=== PATIENT | male | born 1930 | race Caucasian/White ===

== ENCOUNTER 2017-01-04 08:43 | Outpatient (CLI) | payer MEDICARE, BC ==
[2017-01-04 09:29] LABS: AST (SGOT) 22 U/L (5-34); Bilirubin, Total 0.5 mg/dL (0.2-1.2); Chloride 106 mmol/L (98-107); Cholesterol 151 mg/dL (< 200 Desired); Potassium 4.4 mmol/L (3.5-5.1); Sodium 139 mmol/L (136-145); Triglycerides 68 mg/dL (Less than 150)
[2017-01-04 10:05] LABS: ALT (SGPT) 25 U/L (0-55); Albumin 4.3 g/dL (3.4-4.8); Alkaline Phosphatase 63 U/L (40-150); BUN (Urea Nitrogen) 15 mg/dL (8.4-25.7); Calc. Creatinine Clearance 0 mL/min (70-130); Carbon Dioxide 23 mmol/L (23-31); Estimated GFR-MDRD Greater than 90; Globulin 2.3 g/dL (2.4-3.5); Glucose 139 mg/dL (83-110); HDL Cholesterol 46 mg/dL (>60 Neg Risk); Protein, Total 6.6 g/dL (5.8-8.1)
[2017-01-04 12:13] LABS: Anion Gap 14 mmol/L (10-20)
[2017-01-04 12:14] LABS: LDL Cholesterol, Calculated 91 mg/dL
== END 2017-01-04 08:44 | disposition home or self-care (01) ==
LOC: BURLAB 08:43
PROVIDERS: ATTEND Internal Medicine Cardiovascular Disease
DX: I25.10 Atherosclerotic heart disease of native coronary artery without angina pectoris (principal)
CPT/HCPCS: 36415; 80053; 80061

== ENCOUNTER 2017-01-13 17:32 | Emergency (ER) | payer MEDICARE, BC ==
--- NOTE | 2017-01-13 18:43 | RAD ---
LEFT SHOULDER THREE VIEWS 01/13/17 No definite acute fracture was seen. A linear bony density along side the greater tubercle on one vi ew only may be in a tendon. It could signify an old injury. There is a little dip to the superolater al portion of the humeral head that I would wonder if could even be an old Hill-Sachs deformity. No acute fracture or dislocation was seen today. The AC joint is normal in width. IMPRESSION: No acute bony findings. See discussion above. POS: HOME
--- NOTE | 2017-01-13 18:44 | RAD ---
LEFT HUMERUS TWO VIEWS 01/13/17 No acute fracture was demonstrated. The humerus appears intact. A linear bony density near the great er tubercle of the proximal humerus is probably due to prior ligamentous damage here. IMPRESSION: No acute bony findings. POS: HOME
== END 2017-01-13 18:42 | disposition home or self-care (01) ==
LOC: BURERS 17:32
DX: S40.012A Contusion of left shoulder, initial encounter (principal); E11.9 Type 2 diabetes mellitus without complications; E78.00 Pure hypercholesterolemia, unspecified; I25.10 Atherosclerotic heart disease of native coronary artery without angina pectoris; I10 Essential (primary) hypertension; Z79.82 Long term (current) use of aspirin; Z79.899 Other long term (current) drug therapy; Z79.84 Long term (current) use of oral hypoglycemic drugs; W18.00XA Striking against unspecified object with subsequent fall, initial encounter
CPT/HCPCS: 93005

== ENCOUNTER 2017-03-15 09:04 | Outpatient (CLI) | payer MEDICARE, BC ==
--- NOTE | 2017-03-15 18:28 | CT ---
CT LUMBAR SPINE 03/15/2017 COMPARISON: A report from a 2012 MRI of the lumbar spine was reviewed. TECHNIQUE: A spiral CT of the lumbar spine was performed. Axial slices were acquired. Thin coronal and sagitt al reconstructions were done. FINDINGS: No definite acute fracture is demonstrated. There is some scalloping of the superior endplate of L3 that is probably long-standing. Retrolisthesis of L2 on L3 and L4 on L5 could be seen. Degenerate d disks are very prominent at L1-L2 and at L2-L3. The disk space is almost nonexistent at L3-L4. I t is narrowed and degenerated at L5-S1. There are sclerotic changes, particularly in L1 and L2, whi ch seem longstanding. Overall, scoliosis, convex left, is present. Findings by level follow: T11-T12: Degenerative changes but no acute findings. T12-L1: No acute findings. L1-L2: Degenerated disks. Bilateral foraminal stenosis, right more than left, due to facet overgro wth. Some of the facet overgrowth causes lateral recess stenosis, worse on the right. L2-L3: Very difficult to assess the foramina in this patient, but they are narrowed bilaterally. S ignificantly degenerated disks. L3-L4: Severe central canal stenosis due to facet overgrowth and ligamentous hypertrophy. At least moderate left foraminal narrowing. L4-L5: Severe left foraminal narrowing and severe left-sided facet changes. A moderate degree of c entral canal stenosis is present. L5-S1: Some mild concentric bulging of the disks, perhaps a little less eccentric. I cannot tell w hether it touches the left L5 root or not. The SI joints are not seen completely, but the visible areas showed no acute change. The aorta is densely calcified. Nonobstructing renal calculi are seen bilaterally. A rounded perip heral structure attached to the right kidney measures 3.5 cm and is almost certainly a cyst. IMPRESSION: 1. Severe multilevel degenerative changes, as noted. 2. Central canal stenosis, worst at L3-L4. See details above. MRI would be much more sensitive in this patient. POS: HOME
--- NOTE | 2017-03-16 07:42 | RAD ---
LUMBAR SPINE TWO VIEWS 03/15/2017 TECHNIQUE: Flexion and extension lateral views were provided. FINDINGS: No gross fracture is indicated. There are extensive severe degenerative changes present in the spin e. See CT report to follow for details. Multilevel degenerative disk disease is present at L2 and below. There did not appear to be any abnormal motion between flexion and extension. There is mild retrolisthesis of L2 on L3 and possibly of L4 on L5. The aorta is densely calcified. IMPRESSION: 1. Extensive severe degenerative change. 2. No abnormal motion between flexion and extension. POS: HOME
== END 2017-03-15 09:05 | disposition home or self-care (01) ==
LOC: BURCT 09:04
PROVIDERS: ATTEND Nurse Practitioner Family
DX: M47.26 Other spondylosis with radiculopathy, lumbar region (principal); M48.06 Spinal stenosis, lumbar region
CPT/HCPCS: 72100; 72131

== ENCOUNTER 2017-04-06 10:56 | Emergency (ER) | payer MEDICARE, BC | END 2017-04-06 11:17 | disposition home or self-care (01) | LOC: BURERS 10:56 | DX: S76.312A Strain of muscle, fascia and tendon of the posterior muscle group at thigh level, left thigh, initial encounter (principal); M25.561 Pain in right knee; K21.9 Gastro-esophageal reflux disease without esophagitis; E78.5 Hyperlipidemia, unspecified; E11.9 Type 2 diabetes mellitus without complications; Z79.899 Other long term (current) drug therapy; Z79.82 Long term (current) use of aspirin; Z79.84 Long term (current) use of oral hypoglycemic drugs; X58.XXXA Exposure to other specified factors, initial encounter | CPT/HCPCS: 99283 ==

== ENCOUNTER 2017-08-08 01:11 | Emergency (ER) | payer MEDICARE, BC ==
[2017-08-08] MEDS ORDERED: AMOXicillin 250 MG CAP ONE (01:27)
== END 2017-08-08 01:41 | disposition home or self-care (01) ==
LOC: EDBD → BURERS 01:11
DX: J44.0 Chronic obstructive pulmonary disease with (acute) lower respiratory infection (principal); J20.9 Acute bronchitis, unspecified; I48.91 Unspecified atrial fibrillation; E11.9 Type 2 diabetes mellitus without complications; G20 Parkinson's disease; K21.9 Gastro-esophageal reflux disease without esophagitis; E78.5 Hyperlipidemia, unspecified; I25.10 Atherosclerotic heart disease of native coronary artery without angina pectoris; Z95.0 Presence of cardiac pacemaker; Z86.73 Personal history of transient ischemic attack (TIA), and cerebral infarction without residual deficits; Z79.84 Long term (current) use of oral hypoglycemic drugs; Z79.82 Long term (current) use of aspirin; Z79.899 Other long term (current) drug therapy; Z79.01 Long term (current) use of anticoagulants
CPT/HCPCS: 94760; J7620

== ENCOUNTER 2017-08-10 00:38 | Emergency (ER) | payer MEDICARE, BC ==
[2017-08-10] MEDS ORDERED: methylPREDNISolone Sod Succ/PF 125 MG/2 ML VIAL ONE (00:50)
[2017-08-10] MEDS ORDERED: Albuterol Sulfate 1.25 MG/3 ML NEB ONE ×2 (00:53→01:59)
[2017-08-10] MEDS ORDERED: cefTRIAXone\\ROCEPHIN 2 GM VIAL ONE (00:57)
[2017-08-10] MEDS ORDERED: Sodium Chloride 0.9% 100 ML ONE (01:00)
[2017-08-10 01:11] LABS: #Basophils 0.1 thou/uL (0.0-0.2); #Eosinphils 0.1 thou/uL (0.0-0.7); #Monocytes 0.7 thou/uL (0.11-0.59); #Neutrophils 3.4 thou/uL (1.40-6.50); %Basophils 1.2 % (0.0-1.0); %Eosinophils 2.5 % (0.0-10.0); %Lymphocytes 18.7 % (21.0-51.0); %Neutrophils 64.5 % (42.0-75.0); Hemoglobin 14.6 g/dL (14.0-18.0); Mean Corpuscular HGB CONC 32.5 g/dL (32.0-36.0); Mean Corpuscular Hemoglobin 31.6 pg (27.0-31.0); Mean Corpuscular Volume 97.3 fl (80.0-94.0); Mean Platelet Volume 8.2 fL (7.4-10.4); Platelet Count 149 thou/uL (130-400); RBC Distribution Width 12.6 % (11.5-14.5); Red Blood Cell (RBC) Count 4.61 mill/uL (4.70-6.10); White Blood Cell (WBC) Count 5.2 thou/uL (4.8-10.8)
[2017-08-10 01:19] LABS: ALT (SGPT) 7 U/L (8-55); AST (SGOT) 33 U/L (5-34); Alkaline Phosphatase 74 U/L (40-150); Anion Gap 13 mmol/L (10-20); BUN (Urea Nitrogen) 9 mg/dL (8.4-25.7); Bilirubin, Total 0.4 mg/dL (0.2-1.2); Calc. Creatinine Clearance 0 mL/min (70-130); Calcium 9.6 mg/dL (7.8-10.44); Carbon Dioxide 26 mmol/L (23-31); Chloride 103 mmol/L (98-107); Estimated GFR-MDRD Greater than 90; Glucose 147 mg/dL (83-110); Potassium 3.9 mmol/L (3.5-5.1); Sodium 138 mmol/L (136-145)
[2017-08-10 01:23] LABS: Troponin I 0.016 ng/mL (< 0.028)
[2017-08-10 01:30] LABS: CKMB 7.6 ng/mL (0-6.6)
--- NOTE | 2017-08-10 07:06 | RAD ---
PORTABLE CHEST: Date: 08/10/17 An AP portable film at 0041 hours is compared with an 08/06/17 study done at [facility]. FINDINGS: The cardiac size is unchanged. There are no congestive findings. There is some minor streaking in th e left base that could be atelectasis. There might be a small amount of left pleural fluid, but I am less certain about this. A cardiac pacer is in place. Hilar calcifications are seen on the left candelario e, particularly in the aorticopulmonary window. IMPRESSION: Little adverse change since 08/06/17. Minimal left basilar streaking which could be atelectasis. POS: HOME
== END 2017-08-10 02:06 | disposition short-term general hospital (02) ==
LOC: EDBD 00:38 → BURERS 00:38
DX: J18.9 Pneumonia, unspecified organism (principal); I48.91 Unspecified atrial fibrillation; G20 Parkinson's disease; E11.9 Type 2 diabetes mellitus without complications; K21.9 Gastro-esophageal reflux disease without esophagitis; E78.5 Hyperlipidemia, unspecified; I10 Essential (primary) hypertension; Z95.0 Presence of cardiac pacemaker; Z86.73 Personal history of transient ischemic attack (TIA), and cerebral infarction without residual deficits; Z79.84 Long term (current) use of oral hypoglycemic drugs; Z79.82 Long term (current) use of aspirin; Z79.899 Other long term (current) drug therapy; Z79.01 Long term (current) use of anticoagulants
CPT/HCPCS: 71010; 80053; 82553; 83605; 83880; 84484; 85025; 87040; 94760; 96365; 96375; J0696; J2930; J7050; J7620

== ENCOUNTER 2017-09-04 14:55 | Emergency (ER) | payer MEDICARE, BC ==
[2017-09-04 15:34] LABS: #Basophils 0.1 thou/uL (0.0-0.2); #Eosinphils 0.2 thou/uL (0.0-0.7); #Lymphocytes 0.6 thou/uL (1.20-3.40); #Monocytes 0.5 thou/uL (0.11-0.59); #Neutrophils 3.4 thou/uL (1.40-6.50); %Basophils 1.8 % (0.0-1.0); %Eosinophils 3.7 % (0.0-10.0); %Lymphocytes 13.3 % (21.0-51.0); %Monocytes 9.8 % (0.0-10.0); %Neutrophils 71.4 % (42.0-75.0); Hemoglobin 14.4 g/dL (14.0-18.0); Mean Corpuscular HGB CONC 33.7 g/dL (32.0-36.0); Mean Corpuscular Hemoglobin 32.3 pg (27.0-31.0); Mean Corpuscular Volume 95.9 fl (80.0-94.0); Platelet Count 134 thou/uL (130-400); RBC Distribution Width 12.6 % (11.5-14.5); Red Blood Cell (RBC) Count 4.44 mill/uL (4.70-6.10); White Blood Cell (WBC) Count 4.8 thou/uL (4.8-10.8)
[2017-09-04 15:51] LABS: ALT (SGPT) 29 U/L (8-55); AST (SGOT) 24 U/L (5-34); Albumin 3.8 g/dL (3.4-4.8); Alkaline Phosphatase 57 U/L (40-150); Anion Gap 15 mmol/L (10-20); BUN (Urea Nitrogen) 16 mg/dL (8.4-25.7); Bilirubin, Total 0.4 mg/dL (0.2-1.2); Calc. Creatinine Clearance 0 mL/min (70-130); Calcium 9.1 mg/dL (7.8-10.44); Carbon Dioxide 23 mmol/L (23-31); Chloride 102 mmol/L (98-107); Estimated GFR-MDRD Greater than 90; Globulin 2.9 g/dL (2.4-3.5); Glucose 169 mg/dL (83-110); Magnesium 1.7 mg/dL (1.6-2.6); Potassium 3.4 mmol/L (3.5-5.1); Protein, Total 6.7 g/dL (5.8-8.1); Sodium 137 mmol/L (136-145)
[2017-09-04 15:53] LABS: CKMB 2.6 ng/mL (0-6.6)
--- NOTE | 2017-09-04 18:14 | RAD ---
CHEST TWO VIEWS 09/04/17 Comparison is made with an 08/10/17 portable film. There has been no adverse interval change. No lobar consolidations or effusions are seen. Some linear streaking in the left costophrenic angle may be atelectasis. Mediastinal nodes are calcified as usu al. The heart is not enlarged and there is no vascular congestion or edema. The cardiac pacer remains in place. IMPRESSION: No acute thoracic findings. POS: HOME
== END 2017-09-04 16:25 | disposition home or self-care (01) ==
LOC: BURERS 14:55
DX: J06.9 Acute upper respiratory infection, unspecified (principal); E11.9 Type 2 diabetes mellitus without complications; I48.91 Unspecified atrial fibrillation; G20 Parkinson's disease; K21.9 Gastro-esophageal reflux disease without esophagitis; E78.5 Hyperlipidemia, unspecified; I25.10 Atherosclerotic heart disease of native coronary artery without angina pectoris; I10 Essential (primary) hypertension; Z86.73 Personal history of transient ischemic attack (TIA), and cerebral infarction without residual deficits; Z79.899 Other long term (current) drug therapy; Z79.82 Long term (current) use of aspirin; Z79.84 Long term (current) use of oral hypoglycemic drugs; Z79.01 Long term (current) use of anticoagulants
CPT/HCPCS: 71020; 80053; 82553; 83735; 83880; 84443; 84484; 85025; 93005; J7620

== ENCOUNTER 2017-11-18 08:57 | Emergency (ER) | payer MEDICARE, BC ==
[2017-11-18 10:01] LABS: Anion Gap 13 mmol/L (10-20); BUN (Urea Nitrogen) 12 mg/dL (8.4-25.7); Calc. Creatinine Clearance 0 mL/min (70-130); Calcium 8.9 mg/dL (7.8-10.44); Carbon Dioxide 23 mmol/L (23-31); Chloride 106 mmol/L (98-107); Estimated GFR-MDRD Greater than 90; Glucose 146 mg/dL (83-110); Potassium 4.1 mmol/L (3.5-5.1); Sodium 138 mmol/L (136-145)
[2017-11-18] MEDS ORDERED: Magnesium Citrate 300 ML BOT ONE (10:18)
[2017-11-18] MEDS ORDERED: Adenosine 6 MG/2 ML VIAL ONE (13:47)
--- NOTE | 2017-11-18 17:30 | RAD ---
ABDOMEN 11/18/17 Supine and erect films show no free air beneath the diaphragm. Some scarring is suggested in the left lung base near the costophrenic angle. There is no distended bowel to suggest obstruction. A mild to moderate amount of fecal material is seen, mainly in the right colon. Various pelvic calcifications are most likely all phleboliths. Clips are noted from a prior cholecystectomy. Scoliosis of the spine is present with substantial degenerative change. IMPRESSION: At most, mild constipation. POS: HOME
== END 2017-11-18 10:32 | disposition home or self-care (01) ==
LOC: BURERS 08:57
DX: K59.00 Constipation, unspecified (principal); I48.91 Unspecified atrial fibrillation; G20 Parkinson's disease; E11.9 Type 2 diabetes mellitus without complications; K21.9 Gastro-esophageal reflux disease without esophagitis; E78.5 Hyperlipidemia, unspecified; I25.10 Atherosclerotic heart disease of native coronary artery without angina pectoris; I10 Essential (primary) hypertension; Z79.899 Other long term (current) drug therapy; Z79.84 Long term (current) use of oral hypoglycemic drugs; Z79.01 Long term (current) use of anticoagulants; Z79.82 Long term (current) use of aspirin
CPT/HCPCS: 36415; 74019; 80048; J0153

== ENCOUNTER 2017-12-18 13:10 | Emergency (ER) | payer MEDICARE, BC ==
--- NOTE | 2017-12-18 14:54 | RAD ---
2 VIEWS CHEST: Date: 12/18/17 PROVIDED CLINICAL HISTORY: Cough. FINDINGS: Comparison with 09/04/17. Cardiac and mediastinal silhouette is unchanged in appearance. Left subclavian cardiac pacing device is again noted in similar position. No focal consolidation, pleural fluid, or pneumothorax apparent. IMPRESSION: No evidence for an acute cardiopulmonary process. POS: [facility]
== END 2017-12-18 14:20 | disposition home or self-care (01) ==
LOC: BURERS 13:10
DX: G90.01 Carotid sinus syncope (principal); E11.39 Type 2 diabetes mellitus with other diabetic ophthalmic complication; H40.9 Unspecified glaucoma; K21.9 Gastro-esophageal reflux disease without esophagitis; E78.5 Hyperlipidemia, unspecified; I25.10 Atherosclerotic heart disease of native coronary artery without angina pectoris; I10 Essential (primary) hypertension; F43.10 Post-traumatic stress disorder, unspecified; Z87.891 Personal history of nicotine dependence; Z79.01 Long term (current) use of anticoagulants; Z79.899 Other long term (current) drug therapy; Z79.82 Long term (current) use of aspirin
CPT/HCPCS: 71046

== ENCOUNTER 2018-01-07 09:55 | Emergency (ER) | payer MEDICARE, BC ==
--- NOTE | 2018-01-07 20:08 | RAD ---
RIGHT WRIST THREE VIEWS 01/07/18 No gross acute fracture was appreciated. There is narrowing of the radiocarpal joint with some bony s clerosis along the radiocarpal line. The distance in particular between the lunate and the radiocarpa l joint is greatly reduced. It is difficult to assess the carpal bones well, but the lunate still ara ears to be properly located. No acute fractures were identified. Old traumatic changes are seen in th e first MCP joint. IMPRESSION: Severe degenerative change but no definite acute findings. Subtle fractures could easily be missed up on this study. There is some deformity of the lunate that is obviously longstanding. POS: HOME
--- NOTE | 2018-01-07 20:10 | RAD ---
RIGHT HAND THREE VIEWS: 01/07/18 Diffuse degenerative changes are present throughout the IP joints and the MCP joints. The first MCP j oint is the most affected with some subluxation of the proximal phalanx of the thumb. There appears t o have been old trauma here. Degenerative changes are seen in the radiocarpal joint with some deformi ty of the lunate that is obviously long standing. IMPRESSION: Numerous moderately severe degenerative changes but no acute bony findings. POS: HOME
--- NOTE | 2018-01-07 21:09 | CT ---
CT LUMBAR SPINE 01/07/18 Comparison is made with the prior study dated 03/15/17. Axial slices were acquired, then coronal and sagittal reconstructions were done. No acute fracture, d islocation, or acute bony change was appreciated. Severe degenerative changes are present throughout the spine as usual. Lumbar scoliosis convexed left is present with degenerative disc disease at multi ple levels. There is retrolisthesis of L4 on L5, not a new finding, and significant disc space narrow ing at L3-L4. The SI joints were unremarkable. No fracture was seen at any level. Findings by level f ollow: T11-T12: Degenerated disc but no acute findings. Facet arthritis. T12-L1: No acute findings. L1-L2: Significantly degenerated disc with facet hypertrophy and degenerative change. Some posterior bulging of the disc and ligamentous hypertrophy are present which crowds the thecal sac slightly. L2-L3: Significant facet arthritis. Severe central canal stenosis. L3-L4: Severe central canal stenosis. Severe facet arthritis. L4-L5: Severe central canal stenosis with a bulging disc, retrolisthesis and facet and ligamentous hy pertrophy. L5-S1: Mild to moderate facet arthritis. Diffusely bulging disc without obvious improvement. There is a 3.7 cm rounded mass associated with the upper pole of the right kidney that is almost cert ainly a cyst. It has not changed since the prior scan. The left ureter is a little more prominent in size than previously, but there is no hydronephrosis. Some small bilateral renal calculi are seen. IMPRESSION: Multilevel degenerative disc disease as noted along with severe facet changes and multilevel spinal s tenosis. No acute traumatic findings. POS: HOME
== END 2018-01-07 11:29 | disposition home or self-care (01) ==
LOC: BURERS 09:55
DX: S63.501A Unspecified sprain of right wrist, initial encounter (principal); S60.221A Contusion of right hand, initial encounter; I48.91 Unspecified atrial fibrillation; E11.9 Type 2 diabetes mellitus without complications; G20 Parkinson's disease; K21.9 Gastro-esophageal reflux disease without esophagitis; E78.5 Hyperlipidemia, unspecified; I25.10 Atherosclerotic heart disease of native coronary artery without angina pectoris; I10 Essential (primary) hypertension; F43.10 Post-traumatic stress disorder, unspecified; Z86.73 Personal history of transient ischemic attack (TIA), and cerebral infarction without residual deficits; Z87.891 Personal history of nicotine dependence; Z79.84 Long term (current) use of oral hypoglycemic drugs; Z79.01 Long term (current) use of anticoagulants; Z79.899 Other long term (current) drug therapy; W19.XXXA Unspecified fall, initial encounter
CPT/HCPCS: 72131

== ENCOUNTER 2018-04-19 12:44 | Emergency (ER) | payer MEDICARE, BC ==
[2018-04-19] MEDS ORDERED: Neomycin-Polymyxin-Hc 7.5 ML BOT ONE ×2 (13:55→13:56)
== END 2018-04-19 14:02 | disposition home or self-care (01) ==
LOC: BURERS 12:44
DX: H10.9 Unspecified conjunctivitis (principal); I48.91 Unspecified atrial fibrillation; E11.9 Type 2 diabetes mellitus without complications; G20 Parkinson's disease; K21.9 Gastro-esophageal reflux disease without esophagitis; E78.5 Hyperlipidemia, unspecified; I25.10 Atherosclerotic heart disease of native coronary artery without angina pectoris; I10 Essential (primary) hypertension; H40.9 Unspecified glaucoma; F43.10 Post-traumatic stress disorder, unspecified; Z86.73 Personal history of transient ischemic attack (TIA), and cerebral infarction without residual deficits; Z87.891 Personal history of nicotine dependence; Z79.899 Other long term (current) drug therapy; Z79.84 Long term (current) use of oral hypoglycemic drugs; Z79.82 Long term (current) use of aspirin
CPT/HCPCS: 99283

== ENCOUNTER 2018-07-17 14:51 | Emergency (ER) | payer MEDICARE, BC ==
--- NOTE | 2018-07-17 15:56 | RAD ---
CHEST 2 VIEWS: COMPARISON: 12/18/2017, 01/12/2018. FINDINGS: Stable left-sided transvenous pacemaker. There is atherosclerosis of the aorta. Normal cardiac silh ouette. Pulmonary vessels and hilum are normal. Costophrenic angles are clear. No masses or consol idation. No pneumothorax or osseous abnormalities. IMPRESSION: No acute cardiopulmonary process. POS: [facility]
== END 2018-07-17 15:31 | disposition home or self-care (01) ==
LOC: BURERS 14:51
DX: J06.9 Acute upper respiratory infection, unspecified (principal); J44.9 Chronic obstructive pulmonary disease, unspecified; I48.91 Unspecified atrial fibrillation; E11.9 Type 2 diabetes mellitus without complications; E78.5 Hyperlipidemia, unspecified; G20 Parkinson's disease; F43.10 Post-traumatic stress disorder, unspecified; Z87.891 Personal history of nicotine dependence; Z79.82 Long term (current) use of aspirin; Z79.899 Other long term (current) drug therapy; Z79.01 Long term (current) use of anticoagulants; Z79.84 Long term (current) use of oral hypoglycemic drugs
CPT/HCPCS: 71046; 87804

== ENCOUNTER 2018-09-23 14:24 | Emergency (ER) | payer MEDICARE, BC ==
--- NOTE | 2018-09-23 15:16 | RAD ---
RIGHT WRIST 3 VIEWS: HISTORY: Pain. COMPARISON: Radiographs from 2018. FINDINGS: There is severe degenerative disease of the distal radial ulnar joint and distal ulnar carpal joint. There is mild medial subluxation of the proximal carpal row. There is volume loss of the medial lunate with extensive chondromalacia. The same was true for the t riquetrum. There is extensive ossification of the triangular fibrocartilage. IMPRESSION: Marked degenerative changes of the wrist. POS: [facility]
== END 2018-09-23 15:28 | disposition home or self-care (01) ==
LOC: BURERS 14:24
DX: M11.231 Other chondrocalcinosis, right wrist (principal); J44.9 Chronic obstructive pulmonary disease, unspecified; I48.91 Unspecified atrial fibrillation; E11.9 Type 2 diabetes mellitus without complications; G20 Parkinson's disease; K21.9 Gastro-esophageal reflux disease without esophagitis; E78.5 Hyperlipidemia, unspecified; I25.10 Atherosclerotic heart disease of native coronary artery without angina pectoris; I10 Essential (primary) hypertension; F43.10 Post-traumatic stress disorder, unspecified; Z87.891 Personal history of nicotine dependence; Z79.899 Other long term (current) drug therapy; Z79.84 Long term (current) use of oral hypoglycemic drugs; Z79.51 Long term (current) use of inhaled steroids; Z79.82 Long term (current) use of aspirin

== ENCOUNTER 2019-01-14 21:31 | Emergency (ER) | payer MEDICARE, BC ==
[~2019-01-14 21:31] MED LIST: Iopamidol 370 76% 100 ML VIAL ONE
[2019-01-14] MEDS ORDERED: Ondansetron ODT 4 MG TAB ONE (21:50)
[2019-01-14 22:08] LABS: #Lymphocytes 0.8 thou/uL (1.20-3.40); #Monocytes 0.4 thou/uL (0.11-0.59); #Neutrophils 5.5 thou/uL (1.40-6.50); %Basophils 0.6 % (0.0-1.0); %Eosinophils 0.3 % (0.0-10.0); %Lymphocytes 12.2 % (21.0-51.0); %Monocytes 5.2 % (0.0-10.0); %Neutrophils 81.7 % (42.0-75.0); Mean Corpuscular HGB CONC 31.7 g/dL (32.0-36.0); Mean Corpuscular Hemoglobin 30.5 pg (27.0-31.0); Mean Corpuscular Volume 96.1 fL (78.0-98.0); Platelet Count 144 thou/uL (130-400); RBC Distribution Width 13.1 % (11.5-14.5); Red Blood Cell (RBC) Count 4.59 mill/uL (4.70-6.10); White Blood Cell (WBC) Count 6.7 thou/uL (4.8-10.8)
[2019-01-14 22:25] LABS: ALT (SGPT) 24 U/L (8-55); AST (SGOT) 23 U/L (5-34); Albumin 4.1 g/dL (3.4-4.8); Alkaline Phosphatase 58 U/L (40-150); Anion Gap 17 mmol/L (10-20); BUN (Urea Nitrogen) 21 mg/dL (8.4-25.7); Bilirubin, Total 0.6 mg/dL (0.2-1.2); Calc. Creatinine Clearance 0 mL/min (70-130); Calcium 9.2 mg/dL (7.8-10.44); Carbon Dioxide 21 mmol/L (23-31); Chloride 104 mmol/L (98-107); Estimated GFR-MDRD 89; Globulin 2.2 g/dL (2.4-3.5); Glucose 170 mg/dL (83-110); Potassium 4.2 mmol/L (3.5-5.1); Protein, Total 6.3 g/dL (5.8-8.1); Sodium 138 mmol/L (136-145)
--- NOTE | 2019-01-14 23:46 | CT ---
CONTRAST ENHANCED CTA CHEST: 01/14/19 HISTORY: Elevated D-dimer. Contrast enhanced CTA of the chest is performed. 2D and 3D reconstructed images performed on an [employer] workstation. CTA chest demonstrates calcification of the aorta. There is no definite evidence of lung parenchymal masses or lesions. No evidence of mediastinal, hilar or axillary lymphadenopathy seen. No evidence of aortic dissection or aneurysm seen. No evidence of filling defect seen in the pulmonary arteries to suggest pulmonary emboli. IMPRESSION: No evidence of pulmonary emboli. POS: [facility]
== END 2019-01-14 23:55 | disposition home or self-care (01) ==
LOC: BURERS 21:31
DX: R11.0 Nausea (principal); J44.9 Chronic obstructive pulmonary disease, unspecified; E11.9 Type 2 diabetes mellitus without complications; G20 Parkinson's disease; K21.9 Gastro-esophageal reflux disease without esophagitis; E78.5 Hyperlipidemia, unspecified; I25.10 Atherosclerotic heart disease of native coronary artery without angina pectoris; I10 Essential (primary) hypertension; Z86.73 Personal history of transient ischemic attack (TIA), and cerebral infarction without residual deficits; F43.10 Post-traumatic stress disorder, unspecified; Z87.891 Personal history of nicotine dependence; Z79.899 Other long term (current) drug therapy; Z79.84 Long term (current) use of oral hypoglycemic drugs; Z79.82 Long term (current) use of aspirin; Z79.51 Long term (current) use of inhaled steroids
CPT/HCPCS: 71275; 80053; 84484; 85025; 85379; Q0162; Q9967

== ENCOUNTER 2019-05-23 20:42 | Emergency (ER) | payer MEDICARE, BC ==
[2019-05-23] MEDS ORDERED: predniSONE 20 MG TAB ONE (21:27)
== END 2019-05-23 21:24 | disposition home or self-care (01) ==
LOC: BURERS 20:42
DX: T78.40XA Allergy, unspecified, initial encounter (principal); J44.9 Chronic obstructive pulmonary disease, unspecified; I48.91 Unspecified atrial fibrillation; E11.9 Type 2 diabetes mellitus without complications; G20 Parkinson's disease; K21.9 Gastro-esophageal reflux disease without esophagitis; E78.5 Hyperlipidemia, unspecified; E78.00 Pure hypercholesterolemia, unspecified; I25.10 Atherosclerotic heart disease of native coronary artery without angina pectoris; I10 Essential (primary) hypertension; F43.10 Post-traumatic stress disorder, unspecified; Z86.73 Personal history of transient ischemic attack (TIA), and cerebral infarction without residual deficits; Z87.891 Personal history of nicotine dependence; Z79.899 Other long term (current) drug therapy; Z79.84 Long term (current) use of oral hypoglycemic drugs; Z79.82 Long term (current) use of aspirin
CPT/HCPCS: 99283; J7512

== ENCOUNTER 2019-08-04 09:22 | Emergency (ER) | payer MEDICARE, BC ==
--- NOTE | 2019-08-04 10:01 | RAD ---
EXAM: Chest 2 views: HISTORY: Cough COMPARISON: 07/17/2018 FINDINGS: There is an enlarged but stable cardiomediastinal silhouette. The pacemaker is unchanged in position . A metallic coil along the left heart border may represent an occlusive device in the atrial appendage. There is no evidence of consolidation, mass, or pleural effusion. The bones are unremar kable. IMPRESSION: No evidence of acute cardiopulmonary disease
== END 2019-08-04 10:39 | disposition home or self-care (01) ==
LOC: BURERS 09:22
DX: J44.1 Chronic obstructive pulmonary disease with (acute) exacerbation (principal); K21.9 Gastro-esophageal reflux disease without esophagitis; I48.91 Unspecified atrial fibrillation; E11.39 Type 2 diabetes mellitus with other diabetic ophthalmic complication; H42 Glaucoma in diseases classified elsewhere; I25.10 Atherosclerotic heart disease of native coronary artery without angina pectoris; G20 Parkinson's disease; I10 Essential (primary) hypertension; F43.10 Post-traumatic stress disorder, unspecified; E78.5 Hyperlipidemia, unspecified; Z87.891 Personal history of nicotine dependence; Z79.899 Other long term (current) drug therapy; Z79.84 Long term (current) use of oral hypoglycemic drugs; Z79.82 Long term (current) use of aspirin; Z86.73 Personal history of transient ischemic attack (TIA), and cerebral infarction without residual deficits; Z79.51 Long term (current) use of inhaled steroids
CPT/HCPCS: 71046; J7620

== ENCOUNTER 2019-08-09 15:01 | Inpatient (IN) | payer MEDICARE, BC ==
[2019-08-10] MEDS ORDERED: CARBOXYMETHYLCELLULOSE SODIUM EA EYE PRN (07:24)
[2019-08-10] MEDS ORDERED: Potassium Chloride 20 MEQ TAB PO SCH (08:00)
[2019-08-10] MEDS ORDERED: predniSONE 20 MG TAB PO SCH ×2 (08:00)
[2019-08-10] MEDS: predniSONE 20 MG TAB PO SCH (08:50)
[2019-08-10] MEDS: metFORMIN 500 MG TAB PO SCH ×2 (08:51→20:14)
[2019-08-10] MEDS: Doxycycline 100 MG CAP PO SCH ×2 (08:51→20:12)
[2019-08-10] MEDS: guaiFENesin ER 600 MG TAB PO SCH ×2 (08:51→20:13)
[2019-08-10] MEDS: Furosemide 40 MG TAB PO SCH (08:52)
[2019-08-10] MEDS: Amlodipine 5 MG TAB PO SCH (08:52)
[2019-08-10] MEDS: Potassium Chloride 10 MEQ TAB PO SCH (08:57)
[2019-08-10] MEDS: Docusate 100 MG CAP PO SCH ×2 (08:58→20:13)
[2019-08-10] MEDS ORDERED: Non-Formulary Item 1 EACH (Budesonide-Formoterol [Symbicort 160-4.5] 2 PUFF) INH SCH (09:00)
[2019-08-10] MEDS ORDERED: Non-Formulary Item 1 EACH (Pitavastatin Calcium [Livalo] 4 MG) PO SCH (09:00)
[2019-08-10] MEDS ORDERED: CARBIDOPA LEVO PO SCH (09:00)
[2019-08-10] MEDS ORDERED: LEVODOPA PO SCH (09:00)
[2019-08-10] MEDS ORDERED: CARBIDOPA PO SCH (09:00)
[2019-08-10] MEDS: Carbidopa/Levodopa 10-100 mg Tablet PO SCH ×3 (10:03→20:14)
[2019-08-10] MEDS ORDERED: Dextrose 50% Abboject 50 ML SYRINGE IVP PRN (17:52)
[2019-08-10] MEDS ORDERED: Dextrose 5% in Water 1,000 ML IV PRN (17:52)
[2019-08-10] MEDS: HumaLOG 300 UNITS/3 ML VIAL SC PRN ×2 (18:03→20:11)
[2019-08-10] MEDS: Mometasone/Formoterol 60 PUFF AER INH SCH (18:38)
[2019-08-10] MEDS: Aspirin Chewable 81 MG TAB PO SCH (20:12)
[2019-08-10] MEDS: DULoxetine 30 MG CAP PO SCH (20:12)
[2019-08-10] MEDS: Atorvastatin Calcium 40 MG TAB PO SCH (20:12)
[2019-08-10] MEDS: Ezetimibe 10 MG TAB PO SCH (20:13)
[2019-08-10] MEDS: Multivitamin W/ Minerals 1 TAB PO SCH (20:13)
[2019-08-10] MEDS ORDERED: FOLIC ACID PO SCH (21:00)
[2019-08-10] MEDS ORDERED: METOPROLOL SUCCINATE 50 MG PO SCH (21:00)
[2019-08-10] MEDS ORDERED: Atorvastatin Calcium 10 MG TAB PO SCH (21:00)
[2019-08-10] MEDS ORDERED: MULTIVIT MINERALS PO SCH (21:00)
[2019-08-10] MEDS ORDERED: DULOXETINE 60 MG PO SCH (21:00)
[2019-08-11 05:19] LABS: ALT (SGPT) 11 U/L (8-55); AST (SGOT) 12 U/L (5-34); Albumin 3.3 g/dL (3.4-4.8); Alkaline Phosphatase 49 U/L (40-110); Anion Gap 12 mmol/L (10-20); BUN (Urea Nitrogen) 20 mg/dL (8.4-25.7); Bilirubin, Total 0.5 mg/dL (0.2-1.2); Calc. Creatinine Clearance 94 mL/min (70-130); Calcium 9.3 mg/dL (7.8-10.44); Carbon Dioxide 28 mmol/L (23-31); Chloride 100 mmol/L (98-107); Estimated GFR-MDRD Greater than 90; Globulin 2.6 g/dL (2.4-3.5); Glucose 145 mg/dL (83-110); Potassium 3.6 mmol/L (3.5-5.1); Protein, Total 5.9 g/dL (5.8-8.1); Sodium 136 mmol/L (136-145)
[2019-08-11 05:25] LABS: Band 4 % (5-11); Eosinophils 2 % (0-10); Hemoglobin 14.4 g/dL (14.0-18.0); Lymphocytes 20 % (21-51); MDiff Complete? YES; Mean Corpuscular HGB CONC 31.1 g/dL (32.0-36.0); Mean Corpuscular Hemoglobin 30.2 pg (27.0-31.0); Mean Corpuscular Volume 97.2 fL (78.0-98.0); Mean Platelet Volume 8.6 fL (7.4-10.4); Monocytes 8 % (0-10); Neutrophil 66 % (42-75); Platelet Count 184 thou/uL (130-400); Platelet Morphology Comment Appears Adequate; RBC Distribution Width 13.3 % (11.5-14.5); RBC Morphology Normal; Red Blood Cell (RBC) Count 4.76 mill/uL (4.70-6.10); White Blood Cell (WBC) Count 7.2 thou/uL (4.8-10.8)
[2019-08-11] MEDS: Mometasone/Formoterol 60 PUFF AER INH SCH ×2 (05:42→18:22)
[2019-08-11] MEDS: Potassium Chloride 10 MEQ TAB PO SCH (08:46)
[2019-08-11] MEDS: guaiFENesin ER 600 MG TAB PO SCH ×2 (08:46→19:45)
[2019-08-11] MEDS: Furosemide 40 MG TAB PO SCH (08:47)
[2019-08-11] MEDS: Doxycycline 100 MG CAP PO SCH ×2 (08:47→19:47)
[2019-08-11] MEDS: Amlodipine 5 MG TAB PO SCH (08:47)
[2019-08-11] MEDS: metFORMIN 500 MG TAB PO SCH ×2 (08:48→19:45)
[2019-08-11] MEDS: Docusate 100 MG CAP PO SCH ×2 (08:48→19:47)
[2019-08-11] MEDS: predniSONE 20 MG TAB PO SCH (08:50)
[2019-08-11] MEDS: Carbidopa/Levodopa 10-100 mg Tablet PO SCH ×3 (08:54→19:45)
[2019-08-11] MEDS: HumaLOG 300 UNITS/3 ML VIAL SC PRN ×2 (12:13→17:33)
[2019-08-11] MEDS: Ezetimibe 10 MG TAB PO SCH (19:45)
[2019-08-11] MEDS: DULoxetine 30 MG CAP PO SCH (19:46)
[2019-08-11] MEDS: Multivitamin W/ Minerals 1 TAB PO SCH (19:46)
[2019-08-11] MEDS: Atorvastatin Calcium 40 MG TAB PO SCH (19:46)
[2019-08-11] MEDS: Aspirin Chewable 81 MG TAB PO SCH (19:47)
[2019-08-12] MEDS: Mometasone/Formoterol 60 PUFF AER INH SCH ×2 (05:53→18:24)
[2019-08-12] MEDS: Amlodipine 5 MG TAB PO SCH (08:40)
[2019-08-12] MEDS: Doxycycline 100 MG CAP PO SCH ×2 (08:40→20:23)
[2019-08-12] MEDS: Docusate 100 MG CAP PO SCH ×2 (08:40→20:23)
[2019-08-12] MEDS: Potassium Chloride 10 MEQ TAB PO SCH (08:40)
[2019-08-12] MEDS: metFORMIN 500 MG TAB PO SCH ×2 (08:40→20:23)
[2019-08-12] MEDS: Furosemide 40 MG TAB PO SCH (08:40)
[2019-08-12] MEDS: guaiFENesin ER 600 MG TAB PO SCH ×2 (08:40→20:23)
[2019-08-12] MEDS: predniSONE 20 MG TAB PO SCH (08:44)
[2019-08-12] MEDS: Carbidopa/Levodopa 10-100 mg Tablet PO SCH ×3 (08:45→20:23)
[2019-08-12] MEDS: Artificial Tear Sol 15 ML BOT EA EYE PRN (08:48)
[2019-08-12] MEDS: HumaLOG 300 UNITS/3 ML VIAL SC PRN ×3 (08:48→17:48)
[2019-08-12] MEDS: Atorvastatin Calcium 40 MG TAB PO SCH (20:23)
[2019-08-12] MEDS: Ezetimibe 10 MG TAB PO SCH (20:23)
[2019-08-12] MEDS: Multivitamin W/ Minerals 1 TAB PO SCH (20:24)
[2019-08-12] MEDS: Aspirin Chewable 81 MG TAB PO SCH (20:24)
[2019-08-12] MEDS: DULoxetine 30 MG CAP PO SCH (20:24)
[2019-08-13] MEDS: Mometasone/Formoterol 60 PUFF AER INH SCH ×2 (05:55→18:15)
[2019-08-13] MEDS: guaiFENesin ER 600 MG TAB PO SCH ×2 (08:31→20:40)
[2019-08-13] MEDS: Amlodipine 5 MG TAB PO SCH (08:31)
[2019-08-13] MEDS: metFORMIN 500 MG TAB PO SCH ×2 (08:31→20:38)
[2019-08-13] MEDS: predniSONE 20 MG TAB PO SCH (08:32)
[2019-08-13] MEDS: Furosemide 40 MG TAB PO SCH (08:32)
[2019-08-13] MEDS: Potassium Chloride 10 MEQ TAB PO SCH (08:32)
[2019-08-13] MEDS: Doxycycline 100 MG CAP PO SCH ×2 (08:33→20:38)
[2019-08-13] MEDS: Docusate 100 MG CAP PO SCH ×2 (08:33→20:38)
[2019-08-13] MEDS: Carbidopa/Levodopa 10-100 mg Tablet PO SCH ×3 (08:33→20:38)
[2019-08-13] MEDS: Artificial Tear Sol 15 ML BOT EA EYE PRN (08:34)
[2019-08-13] MEDS: HumaLOG 300 UNITS/3 ML VIAL SC PRN ×3 (08:34→18:01)
[2019-08-13] MEDS: Multivitamin W/ Minerals 1 TAB PO SCH (20:38)
[2019-08-13] MEDS: DULoxetine 30 MG CAP PO SCH (20:39)
[2019-08-13] MEDS: Aspirin Chewable 81 MG TAB PO SCH (20:39)
[2019-08-13] MEDS: Ezetimibe 10 MG TAB PO SCH (20:40)
[2019-08-13] MEDS: Atorvastatin Calcium 40 MG TAB PO SCH (20:41)
[2019-08-14 06:34] VITALS: BMI 28.8
[2019-08-14] MEDS: Mometasone/Formoterol 60 PUFF AER INH SCH ×2 (06:37→18:22)
[2019-08-14] MEDS ORDERED: Dextrose 50% Abboject 50 ML SYRINGE SLOW IVP PRN (07:08)
[2019-08-14] MEDS ORDERED: Dextrose 5% in Water 1,000 ML IV PRN (07:08)
[2019-08-14] MEDS ORDERED: HumaLOG 300 UNITS/3 ML VIAL SC PRN (07:08)
[2019-08-14] MEDS: metFORMIN 500 MG TAB PO SCH ×2 (08:02→20:20)
[2019-08-14] MEDS: Artificial Tear Sol 15 ML BOT EA EYE PRN (08:02)
[2019-08-14] MEDS: Docusate 100 MG CAP PO SCH ×2 (08:02→20:19)
[2019-08-14] MEDS: Carbidopa/Levodopa 10-100 mg Tablet PO SCH ×3 (08:02→20:19)
[2019-08-14] MEDS: predniSONE 20 MG TAB PO SCH (08:03)
[2019-08-14] MEDS: Potassium Chloride 10 MEQ TAB PO SCH (08:03)
[2019-08-14] MEDS: Furosemide 40 MG TAB PO SCH (08:03)
[2019-08-14] MEDS: guaiFENesin ER 600 MG TAB PO SCH ×2 (08:03→20:20)
[2019-08-14] MEDS: Amlodipine 5 MG TAB PO SCH (08:03)
[2019-08-14] MEDS: Doxycycline 100 MG CAP PO SCH ×2 (08:03→20:20)
[2019-08-14] MEDS: HumaLOG 300 UNITS/3 ML VIAL SC PRN ×2 (12:43→18:21)
[2019-08-14] MEDS: DULoxetine 30 MG CAP PO SCH (20:19)
[2019-08-14] MEDS: Multivitamin W/ Minerals 1 TAB PO SCH (20:19)
[2019-08-14] MEDS: Aspirin Chewable 81 MG TAB PO SCH (20:20)
[2019-08-14] MEDS: Ezetimibe 10 MG TAB PO SCH (20:20)
[2019-08-14] MEDS: Atorvastatin Calcium 40 MG TAB PO SCH (20:20)
[2019-08-15] MEDS: Mometasone/Formoterol 60 PUFF AER INH SCH (06:05)
[2019-08-15 06:57] VITALS: TEMP 98.5
[2019-08-15] MEDS: Doxycycline 100 MG CAP PO SCH (08:45)
[2019-08-15] MEDS: guaiFENesin ER 600 MG TAB PO SCH (08:45)
[2019-08-15] MEDS: Docusate 100 MG CAP PO SCH (08:45)
[2019-08-15] MEDS: Amlodipine 5 MG TAB PO SCH (08:46)
[2019-08-15] MEDS: predniSONE 20 MG TAB PO SCH (08:46)
[2019-08-15] MEDS: Potassium Chloride 10 MEQ TAB PO SCH (08:46)
[2019-08-15] MEDS: metFORMIN 500 MG TAB PO SCH (08:46)
[2019-08-15] MEDS: Furosemide 40 MG TAB PO SCH (08:46)
[2019-08-15 08:47] VITALS: BP 128/61
[2019-08-15] MEDS: Carbidopa/Levodopa 10-100 mg Tablet PO SCH ×2 (08:47→14:52)
[2019-08-15] MEDS: HumaLOG 300 UNITS/3 ML VIAL SC PRN (12:48)
--- NOTE | 2019-08-16 10:45 | DIS ---
DATE OF ADMISSION: 08/09/2019 DATE OF DISCHARGE: 08/15/2019 ADMISSION DIAGNOSES: Physical deconditioning, combined systolic and diastolic congestive heart failure, chronic obstructive pulmonary disease, type 2 diabetes mellitus, hypertension, dyslipidemia, and Parkinson disease. PROCEDURES: None. HOSPITAL COURSE: An 89-year-old male, presented to our facility to participate with Physical Therapy and Occupational Therapy status post acute admission at [facility] where he was treated for acute respiratory failure with hypoxia requiring BiPAP. This admission was related to his underlying diagnoses including CHF and COPD. He was diuresed during his stay and he was able to return back to his baseline mental status. Secondary to his deconditioned state, he transferred to our facility, where he has participated with Physical Therapy and Occupational Therapy. He has shown gradual improvement and sufficiently met the goals to be able to return to his home setting. His usual medications have been continued during his stay. He reports to be comfortable with returning home where he lives with his locally. DISPOSITION: The patient will be discharged home. He will continue physical therapy and occupational therapy at [facility]. DISCHARGE MEDICATIONS: 1. K-Dur 10 mEq p.o. daily. 2. Toprol-XL 50 mg p.o. daily. 3. DuoNeb q.6 hours p.r.n. 4. Mucinex 1200 mg p.o. b.i.d. 5. Lasix 40 mg p.o. daily. 6. Colace 100 mg b.i.d. 7. Livalo 4 mg nightly. 8. Protonix 40 mg daily. 9. Multivitamin daily. 10. Metformin 500 mg b.i.d. 11. Zetia 5 mg nightly. 12. Cymbalta 60 mg nightly. 13. Carbidopa-levodopa 10/100 mg t.i.d. 14. Symbicort 160/4.5 mcg two puffs b.i.d. 15. Aspirin 81 mg p.o. daily. 16. Norvasc 5 mg p.o. daily. Job ID: [id number]
--- NOTE | 2019-08-17 04:20 | PQF ---
[employer] Crystal Reports Winform ViewerCLEVELAND DM GREER CHET WHITNEY [id number] CLINICAL DOCUMENTATION CLARIFICATION FORM: POST DISCHARGE Addendum to original discharge summary date: 08/15/19 Late entry note date: 08/17/19 DATE: 08/17/2019 ATTN: CHET WHITNEY Please exercise your independent, professional judgment in responding to the clarification form. Clinical indicators are provided on the bottom of this form for your review Please check appropriate box(s): HEART FAILURE: B. ACUITY [ ] Acute [ ] Acute on Chronic [ x ] Chronic [ ] Other diagnosis [ ] Unable to determine In addition, please specify: Present on Admission (POA): [ x ] Yes [ ] No [ ] Unable to determine For continuity of documentation, please document condition throughout progress notes and discharge summary. Thank You. CLINICAL INDICATORS - SIGNS / SYMPTOMS / LABS Combined systolic and diastolic CHF - Documented in DS on 08/09 by chet Whitney MD Status post acute admission [facility] where he was treated for acute respiratory failure with hypoxia - Documented in DS on 08/09 by chet Whitney MD Previous admission was related to his underlying diagnoses including CHF and COPD - Documented in DS on 08/09 by chet Whitney MD Due to deconditioned state he transferred to our facility - Documented in DS on 08/09 by chet Whitney MD RISKS: DM HTN COPD TREATMENTS: Furosemide[Lasix] 40 mg PO daily - Documented Medication report [employer] Crystal Reports Winform Viewer (This form is maintained as a part of the permanent medical record) 2014 [employer]. All Rights Reserved [email or web address] [not provided] MTDD
== END 2019-08-15 16:10 | disposition home or self-care (01) | DRG 948 ==
LOC: BURMED 18:30
PROVIDERS: ADMIT Family Medicine; ATTEND Family Medicine
DX: R53.81 Other malaise (principal); I50.42 Chronic combined systolic (congestive) and diastolic (congestive) heart failure; E78.5 Hyperlipidemia, unspecified; G20 Parkinson's disease; I11.0 Hypertensive heart disease with heart failure; J44.9 Chronic obstructive pulmonary disease, unspecified; I25.10 Atherosclerotic heart disease of native coronary artery without angina pectoris; F43.10 Post-traumatic stress disorder, unspecified; K21.9 Gastro-esophageal reflux disease without esophagitis; Z95.0 Presence of cardiac pacemaker; Z79.84 Long term (current) use of oral hypoglycemic drugs; Z79.82 Long term (current) use of aspirin; Z91.010 Allergy to peanuts; Z87.891 Personal history of nicotine dependence; Z91.018 Allergy to other foods
CPT/HCPCS: 36415; 36416; 80053; 85025; 94664; J7512; J7620

== ENCOUNTER 2019-12-19 06:37 | Emergency (ER) | payer MEDICARE, BC ==
[2019-12-19] MEDS ORDERED: Acetaminophen/Codeine 30-300mg Tablet ONE (07:13)
--- NOTE | 2019-12-19 15:31 | CT ---
CT OF THE BRAIN WITHOUT CONTRST: DATE: 12/19/2019. FINDINGS: Diffuse atrophy is present along with some very mild compensatory dilatation of the ventricles. No i ntracranial bleeding or extraaxial hematoma was seen. 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 This was present on his prior CT of August 2015. There is no sign of mass or edema. The skull appears intact. The visib le paranasal sinuses are clear. There probably has been a prior injury to the nasal bones. IMPRESSION: Chronic changes, but no acute intracranial findings. POS: HOME
--- NOTE | 2019-12-19 15:44 | CT ---
CT OF THE CERVICAL SPINE: 12/19/[address] of the cervical spine was performed for evaluation following trauma. Axial slices were acqu ired, followed by coronal and sagittal reconstructions. No fracture, dislocation, or acute bony change was seen. There are diffuse severe degenerative change s present throughout the cervical spine, especially in the facet joints. Mild anterior subluxation of C4 on C5 appears to be due to particularly severe facet arthritis on the left side. There is disc sp luis narrowing at C5-C6 and C6-C7. The C1 to dens distance is normal. Findings my level follow: C1-C2: No acute findings. C2-C3: Facet arthritis, particularly on the left. No stenosis. C3-C4: Severe left facet arthritis with severe left foraminal narrowing. There is impingement on the left lateral recess by uncovertebral osteophytes. C4-C5: Mild anterior subluxation of C4 on C5 due to facet changes. Probably some mild left foraminal stenosis. C5-C6: The AP diameter of the spinal canal at this level narrows to 7 to 8 mm. This does put the cord at risk for contusion in the midst of trauma. There is severe right foraminal stenosis and at least moderate left foraminal stenosis. C6-C7: Mild right foraminal stenosis and moderate left foraminal stenosis. The AP diameter of the can al narrows to about 9 mm. C7-T1: No acute findings. Foramina are difficult to evaluate well. T1-T4: No fracture or acute change seen. Lung apices are clear and fully inflated. The appearance of the cervical spine was compared with an older CT from 05/26/15. While arthritis has advanced, the subluxation and general appearance has not changed substantially. IMPRESSION: Very severe degenerative changes as noted above. No acute traumatic findings. Initial findings of this and CT of the brain called to Dr. Pabon at 0759 on 12/19/19. POS: HOME
--- NOTE | 2019-12-19 15:46 | RAD ---
PORTABLE CHEST: 12/19/19 An AP portable film at 0737 is compared with a 10/09/19 film done at [facility]. The cardiac size is unchanged given differences in projection. A metallic coil of sorts is seen over the left heart border and is unchanged. A calcified node is noted in the aorticopulmonary window. Th ere is no congestive change. The lungs are clear. Haziness of the base is thought to be due to portab le technique and the patient being turned slightly. IMPRESSION: No definite acute finding. POS: HOME
== END 2019-12-19 08:20 | disposition home or self-care (01) ==
LOC: BURERS 06:37
DX: S51.012A Laceration without foreign body of left elbow, initial encounter (principal); S61.412A Laceration without foreign body of left hand, initial encounter; S00.03XA Contusion of scalp, initial encounter; S20.212A Contusion of left front wall of thorax, initial encounter; S00.83XA Contusion of other part of head, initial encounter; J44.9 Chronic obstructive pulmonary disease, unspecified; I48.91 Unspecified atrial fibrillation; E11.9 Type 2 diabetes mellitus without complications; K21.9 Gastro-esophageal reflux disease without esophagitis; E78.5 Hyperlipidemia, unspecified; E78.00 Pure hypercholesterolemia, unspecified; I25.10 Atherosclerotic heart disease of native coronary artery without angina pectoris; I10 Essential (primary) hypertension; F43.10 Post-traumatic stress disorder, unspecified; Z87.891 Personal history of nicotine dependence; Z79.899 Other long term (current) drug therapy; Z79.84 Long term (current) use of oral hypoglycemic drugs; Z79.82 Long term (current) use of aspirin; W06.XXXA Fall from bed, initial encounter
CPT/HCPCS: 70450; 71045; 72125

== ENCOUNTER 2020-03-13 13:34 | Emergency (ER) | payer MEDICARE, BC ==
[2020-03-13] MEDS ORDERED: Bacitracin 1 PK ONE (14:07)
--- NOTE | 2020-03-13 14:43 | RAD ---
RIGHT HAND 3 VIEWS: DATE: 03/13/2020. FINDINGS: No acute fracture was seen. The third digit is not seen optimally on the lateral view due to overlap of fingers, however. Degenerative changes are present in most of the IP joints and some of the MCP joints. The most effective is the 1st MCP joint with some slight subluxation of the proximal phalanx of the thumb on the metacarpal head. There is some bony overgrowth here. Carpals are seen less roberto n optimally, but no definite acute change was confirmed. There might be an erosion in the triquetrum , but this is less certain. IMPRESSION: No acute traumatic finding. POS: HOME
== END 2020-03-13 14:15 | disposition home or self-care (01) ==
LOC: BURERS 13:34
DX: S61.314A Laceration without foreign body of right ring finger with damage to nail, initial encounter (principal); S66.312A Strain of extensor muscle, fascia and tendon of right middle finger at wrist and hand level, initial encounter; F43.10 Post-traumatic stress disorder, unspecified; E78.5 Hyperlipidemia, unspecified; K21.9 Gastro-esophageal reflux disease without esophagitis; I10 Essential (primary) hypertension; G20 Parkinson's disease; J44.9 Chronic obstructive pulmonary disease, unspecified; I25.10 Atherosclerotic heart disease of native coronary artery without angina pectoris; I48.91 Unspecified atrial fibrillation; E11.39 Type 2 diabetes mellitus with other diabetic ophthalmic complication; H42 Glaucoma in diseases classified elsewhere; Z86.73 Personal history of transient ischemic attack (TIA), and cerebral infarction without residual deficits; Z87.891 Personal history of nicotine dependence; Z79.84 Long term (current) use of oral hypoglycemic drugs; Z79.899 Other long term (current) drug therapy; Z79.82 Long term (current) use of aspirin; W18.30XA Fall on same level, unspecified, initial encounter

== ENCOUNTER 2020-05-31 06:16 | Emergency (ER) | payer MEDICARE, BC ==
[2020-05-31 07:21] LABS: #Eosinphils 0.2 thou/uL (0.0-0.7); #Lymphocytes 1.4 thou/uL (1.20-3.40); #Monocytes 0.5 thou/uL (0.11-0.59); #Neutrophils 4.6 thou/uL (1.40-6.50); %Basophils 0.6 % (0.0-1.0); %Eosinophils 2.7 % (0.0-10.0); %Lymphocytes 20.7 % (21.0-51.0); %Monocytes 6.8 % (0.0-10.0); %Neutrophils 69.2 % (42.0-75.0); Hemoglobin 15.6 g/dL (14.0-18.0); Mean Corpuscular HGB CONC 30.9 g/dL (32.0-36.0); Mean Corpuscular Hemoglobin 30.4 pg (27.0-31.0); Mean Corpuscular Volume 98.2 fL (78.0-98.0); Mean Platelet Volume 9.5 fL (7.4-10.4); Platelet Count 147 thou/uL (130-400); RBC Distribution Width 13.8 % (11.5-14.5); Red Blood Cell (RBC) Count 5.13 mill/uL (4.70-6.10); White Blood Cell (WBC) Count 6.6 thou/uL (4.8-10.8)
[2020-05-31 07:28] LABS: Prothrombin Time 12.7 sec (12.0-14.7)
[2020-05-31 07:38] LABS: ALT (SGPT) 37 U/L (8-55); AST (SGOT) 20 U/L (5-34); Albumin 3.7 g/dL (3.4-4.8); Alkaline Phosphatase 62 U/L (40-110); Anion Gap 13 mmol/L (10-20); BUN (Urea Nitrogen) 13 mg/dL (8.4-25.7); Bilirubin, Total 0.5 mg/dL (0.2-1.2); Calc. Creatinine Clearance 0 mL/min (70-130); Calcium 8.7 mg/dL (7.8-10.44); Carbon Dioxide 25 mmol/L (23-31); Chloride 101 mmol/L (98-107); Estimated GFR-MDRD Greater than 90; Globulin 2.3 g/dL (2.4-3.5); Glucose 239 mg/dL (83-110); Potassium 4.4 mmol/L (3.5-5.1); Sodium 135 mmol/L (136-145)
--- NOTE | 2020-05-31 07:45 | CT ---
CT BRAIN NONCONTRAST: DATE: 05/31/2020 HISTORY: 82-year-old male status post acute head trauma from fall COMPARISON: 12/19/2019 FINDINGS: There is no evidence of acute intra-axial or extra-axial hemorrhage. There is no midline shift or any other mass effect. There is no extra-axial fluid collection. There is no evidence of obstructive hydrocephalus. Calvarium is intact. There is diffuse brain parenchymal volume loss. There are low att enuation areas in the white matter. These are nonspecific, but in a patient of this age, they are probably chronic ischemic white matter changes due to microvascular atherosclerosis. There is an old lacunar infarction from the upper aspect of the left basal ganglia extending to involve the body of the left caudate nucleus and adjacent periventricular white matter of the hernandez radiata. There is no interval change. IMPRESSION: 1) No acute intracranial findings. 2) involutional changes and chronic ischemic white matter changes. 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
--- NOTE | 2020-05-31 07:48 | CT ---
CT CERVICAL SPINE NONCONTRAST: DATE: 05/31/2020 HISTORY: cervical trauma: 89-year-old male status post fall FINDINGS: There are no jumped or perched facets. There is no evidence of acute fracture. The vertebral body hei ghts are maintained. There is no prevertebral soft tissue swelling. There are degenerative disc changes and facet osteoarthrosis. IMPRESSION: 1) Cervical spondylosis. 2) no evidence of acute fracture or acute traumatic subluxation.
[2020-05-31 08:15] LABS: Bilirubin Negative (Negative); Blood, Urine Negative (Negative); Clarity Clear (Clear); Glucose, Urine (Dipstick) 500 mg/dL (Negative); Ketone, Urine Negative (Negative); Leukocyte Negative (Negative); Nitrite Negative (Negative); Protein, Urine (Dipstick) Trace mg/dL (Neg-Trace); Specific Gravity, Urine 1.025 (1.005-1.030)
--- NOTE | 2020-05-31 12:34 | RAD ---
PELVIS 1 VIEW: DATE: 05/31/2020. FINDINGS: No fractures were appreciated. Gas and fecal material partially obscure some of the bony detail. Co nstipation is likely present. The hip joints are symmetrical. No hip fractures or fractures of the pubic rami were seen. The SI joints are symmetrical and the symphysis shows no widening or offset. IMPRESSION: No acute finding. POS: HOME
--- NOTE | 2020-05-31 13:09 | RAD ---
PORTABLE CHEST: Date: 05/31/2020 Comparison made with the prior study of 12/19/2019. Mild cardiomegaly is no different than before. The cardiac pacer remains in place. There are no conge stive changes or pleural effusions. Minor crowding of lung markings in the right base is most likely atelectasis due to an incomplete breath. It is slightly opaque in the left base, but really no differ ent than before. There is no widening or shift of the mediastinum. No gross fractures were identified , but subtle rib fractures would be easily missed on this portable study. IMPRESSION: No acute thoracic finding. POS: HOME
--- NOTE | 2020-05-31 13:11 | RAD ---
RIGHT HAND 3 VIEWS: Date: 05/31/2020 Comparison made with the 03/13/2020 study. There are degenerative changes throughout the hand and wrist, in many of the IP joints and the MCP princess ints. There is medial subluxation of the proximal phalanx of the thumb on the first metacarpal head. The carpals are difficult to assess, particularly the medial proximal row of carpals. There is substa ntial degenerative change in the radiocarpal joint. There may be an old injury to the distal ulna. No ne of the findings are strongly suggestive of acute fracture, though subtle injuries would be missed. IMPRESSION: Longstanding degenerative changes and probable old trauma. No definite acute change. POS: HOME
== END 2020-05-31 09:00 | disposition home or self-care (01) ==
LOC: BURERS 06:16
DX: S09.90XA Unspecified injury of head, initial encounter (principal); S51.812A Laceration without foreign body of left forearm, initial encounter; S61.411A Laceration without foreign body of right hand, initial encounter; J44.9 Chronic obstructive pulmonary disease, unspecified; E11.9 Type 2 diabetes mellitus without complications; K21.9 Gastro-esophageal reflux disease without esophagitis; E78.5 Hyperlipidemia, unspecified; E78.00 Pure hypercholesterolemia, unspecified; Z87.891 Personal history of nicotine dependence; Z79.899 Other long term (current) drug therapy; W18.30XA Fall on same level, unspecified, initial encounter
CPT/HCPCS: 12004; 70450; 71045; 72125; 72170; 80053; 81003; 85025; 85610

== ENCOUNTER 2020-10-13 10:49 | Emergency (ER) | payer MEDICARE, BC ==
[2020-10-13] MEDS ORDERED: Clindamycin 150 MG CAP ONE (11:36)
== END 2020-10-13 11:55 | disposition home or self-care (01) ==
LOC: BURERS 10:49
DX: L03.032 Cellulitis of left toe (principal); J44.9 Chronic obstructive pulmonary disease, unspecified; I48.91 Unspecified atrial fibrillation; E11.9 Type 2 diabetes mellitus without complications; G20 Parkinson's disease; K21.9 Gastro-esophageal reflux disease without esophagitis; E78.5 Hyperlipidemia, unspecified; E78.00 Pure hypercholesterolemia, unspecified; I25.10 Atherosclerotic heart disease of native coronary artery without angina pectoris; Z87.891 Personal history of nicotine dependence
CPT/HCPCS: 99283

== ENCOUNTER 2020-12-07 01:44 | Emergency (ER) | payer MEDICARE, BC ==
[2020-12-07] MEDS ORDERED: Acetaminophen 500 MG TAB ONE (02:19)
== END 2020-12-07 02:45 | disposition short-term general hospital (02) ==
LOC: BURERS 01:44
DX: R13.10 Dysphagia, unspecified (principal); J44.9 Chronic obstructive pulmonary disease, unspecified; I48.91 Unspecified atrial fibrillation; E11.9 Type 2 diabetes mellitus without complications; K21.9 Gastro-esophageal reflux disease without esophagitis; E78.5 Hyperlipidemia, unspecified; I10 Essential (primary) hypertension; Z87.891 Personal history of nicotine dependence; Z79.899 Other long term (current) drug therapy; Z79.82 Long term (current) use of aspirin; Z79.84 Long term (current) use of oral hypoglycemic drugs
CPT/HCPCS: 99284

== ENCOUNTER 2020-12-11 15:31 | Inpatient (IN) | payer MEDICARE, BC ==
[2020-12-11] MEDS ORDERED: Albuterol Sulfate 2.5 mg/3 ml Neb EZPAP PRN (20:36)
[2020-12-11] MEDS ORDERED: metFORMIN 500 MG TAB PO SCH (21:00)
[2020-12-11] MEDS ORDERED: Potassium Chloride 10 MEQ TAB PO SCH (21:00)
[2020-12-11] MEDS ORDERED: Artificial Tear Sol 15 ML BOT EA EYE PRN (21:01)
[2020-12-11] MEDS: Aspirin Chewable 81 MG TAB PO SCH (21:43)
[2020-12-11] MEDS: Atorvastatin Calcium 10 MG TAB PO SCH (21:43)
[2020-12-11] MEDS: Ezetimibe 10 MG TAB PO SCH (21:43)
[2020-12-11] MEDS: Carbidopa/Levodopa 10-100 mg Tablet PO SCH (21:43)
[2020-12-11] MEDS: DULoxetine 30 MG CAP PO SCH (21:43)
[2020-12-12] MEDS: Potassium Chloride 10 MEQ TAB PO SCH (07:54)
[2020-12-12] MEDS: Amlodipine 5 MG TAB PO SCH (07:54)
[2020-12-12] MEDS: metFORMIN 500 MG TAB PO SCH (07:55)
[2020-12-12] MEDS: Carbidopa/Levodopa 10-100 mg Tablet PO SCH ×2 (07:55→21:57)
[2020-12-12] MEDS: Azithromycin 250 MG TAB PO SCH (07:55)
[2020-12-12] MEDS ORDERED: FLU VACC QS2020-21(65YR UP)/PF 240 MCG/0.7 ML SYRINGE IM ONE (09:00)
[2020-12-12] MEDS: Mometasone/Formoterol 200/5 60 PUFF INH SCH ×2 (09:16→21:59)
[2020-12-12] MEDS ORDERED: CLOTRIMAZOLE 10 MG PO SCH (13:00)
[2020-12-12] MEDS: Aspirin Chewable 81 MG TAB PO SCH (21:57)
[2020-12-12] MEDS: Atorvastatin Calcium 10 MG TAB PO SCH (21:58)
[2020-12-12] MEDS: DULoxetine 30 MG CAP PO SCH (21:58)
[2020-12-12] MEDS: Ezetimibe 10 MG TAB PO SCH (21:58)
[2020-12-13] MEDS: Amlodipine 5 MG TAB PO SCH (09:11)
[2020-12-13] MEDS: Carbidopa/Levodopa 10-100 mg Tablet PO SCH ×4 (09:11→20:46)
[2020-12-13] MEDS: Azithromycin 250 MG TAB PO SCH (09:12)
[2020-12-13] MEDS: metFORMIN 500 MG TAB PO SCH ×3 (09:13→16:46)
[2020-12-13] MEDS: Potassium Chloride 10 MEQ TAB PO SCH ×3 (09:14→16:45)
[2020-12-13] MEDS: Mometasone/Formoterol 200/5 60 PUFF INH SCH ×2 (09:16→20:00)
[2020-12-13] MEDS ORDERED: Dextrose 50% Abboject 50 ML SYRINGE IVP PRN (15:45)
[2020-12-13] MEDS ORDERED: Dextrose 5% in Water 1,000 ML IV PRN (15:45)
[2020-12-13] MEDS: HumaLOG 300 UNITS/3 ML VIAL SC PRN (17:25)
[2020-12-13] MEDS: Ezetimibe 10 MG TAB PO SCH (20:45)
[2020-12-13] MEDS: Aspirin Chewable 81 MG TAB PO SCH (20:46)
[2020-12-13] MEDS: Atorvastatin Calcium 10 MG TAB PO SCH (20:47)
[2020-12-13] MEDS: DULoxetine 30 MG CAP PO SCH (20:47)
[2020-12-14] MEDS: Mometasone/Formoterol 200/5 60 PUFF INH SCH ×2 (08:39→18:09)
[2020-12-14] MEDS: metFORMIN 500 MG TAB PO SCH ×2 (08:43→17:24)
[2020-12-14] MEDS: Azithromycin 250 MG TAB PO SCH (08:43)
[2020-12-14] MEDS: Carbidopa/Levodopa 10-100 mg Tablet PO SCH ×3 (08:43→21:59)
[2020-12-14] MEDS: Potassium Chloride 10 MEQ TAB PO SCH ×2 (08:43→17:24)
[2020-12-14] MEDS: Amlodipine 5 MG TAB PO SCH (08:43)
[2020-12-14] MEDS: HumaLOG 300 UNITS/3 ML VIAL SC PRN ×2 (12:26→17:25)
[2020-12-14] MEDS: Ezetimibe 10 MG TAB PO SCH (21:55)
[2020-12-14] MEDS: DULoxetine 30 MG CAP PO SCH (21:59)
[2020-12-14] MEDS: Atorvastatin Calcium 10 MG TAB PO SCH (21:59)
[2020-12-14] MEDS: Aspirin Chewable 81 MG TAB PO SCH (21:59)
[2020-12-15] MEDS: Azithromycin 250 MG TAB PO SCH (09:20)
[2020-12-15] MEDS: Potassium Chloride 10 MEQ TAB PO SCH ×2 (09:20→17:08)
[2020-12-15] MEDS: Carbidopa/Levodopa 10-100 mg Tablet PO SCH ×3 (09:20→20:26)
[2020-12-15] MEDS: metFORMIN 500 MG TAB PO SCH ×2 (09:20→17:09)
[2020-12-15] MEDS: Mometasone/Formoterol 200/5 60 PUFF INH SCH ×2 (09:25→19:33)
[2020-12-15] MEDS: Amlodipine 5 MG TAB PO SCH (09:25)
[2020-12-15] MEDS: HumaLOG 300 UNITS/3 ML VIAL SC PRN ×4 (09:29→20:46)
[2020-12-15] MEDS: Ezetimibe 10 MG TAB PO SCH (20:26)
[2020-12-15] MEDS: Atorvastatin Calcium 10 MG TAB PO SCH (20:26)
[2020-12-15] MEDS: DULoxetine 30 MG CAP PO SCH (20:26)
[2020-12-15] MEDS: Aspirin Chewable 81 MG TAB PO SCH (20:27)
[2020-12-16 05:53] VITALS: BMI 29.2
[2020-12-16] MEDS: Mometasone/Formoterol 200/5 60 PUFF INH SCH ×2 (06:30→18:44)
[2020-12-16] MEDS: Carbidopa/Levodopa 10-100 mg Tablet PO SCH ×3 (08:02→21:14)
[2020-12-16] MEDS: Potassium Chloride 10 MEQ TAB PO SCH ×2 (08:03→17:17)
[2020-12-16] MEDS: metFORMIN 500 MG TAB PO SCH ×2 (08:03→17:18)
[2020-12-16] MEDS: Amlodipine 5 MG TAB PO SCH (08:04)
[2020-12-16] MEDS: Azithromycin 250 MG TAB PO SCH (08:05)
[2020-12-16] MEDS: HumaLOG 300 UNITS/3 ML VIAL SC PRN ×2 (08:20→17:19)
[2020-12-16] MEDS: Ezetimibe 10 MG TAB PO SCH (21:14)
[2020-12-16] MEDS: DULoxetine 30 MG CAP PO SCH (21:15)
[2020-12-16] MEDS: Aspirin Chewable 81 MG TAB PO SCH (21:15)
[2020-12-16] MEDS: Atorvastatin Calcium 10 MG TAB PO SCH (21:15)
[2020-12-17] MEDS: Mometasone/Formoterol 200/5 60 PUFF INH SCH ×2 (07:16→21:29)
[2020-12-17] MEDS: Carbidopa/Levodopa 10-100 mg Tablet PO SCH ×3 (07:57→21:28)
[2020-12-17] MEDS: Potassium Chloride 10 MEQ TAB PO SCH ×2 (07:58→17:29)
[2020-12-17] MEDS: metFORMIN 500 MG TAB PO SCH ×2 (07:59→17:29)
[2020-12-17] MEDS: Amlodipine 5 MG TAB PO SCH (07:59)
[2020-12-17] MEDS: Azithromycin 250 MG TAB PO SCH (07:59)
[2020-12-17] MEDS: HumaLOG 300 UNITS/3 ML VIAL SC PRN ×3 (08:04→17:30)
[2020-12-17] MEDS: Atorvastatin Calcium 10 MG TAB PO SCH (21:27)
[2020-12-17] MEDS: DULoxetine 30 MG CAP PO SCH (21:28)
[2020-12-17] MEDS: Ezetimibe 10 MG TAB PO SCH (21:28)
[2020-12-17] MEDS: Aspirin Chewable 81 MG TAB PO SCH (21:28)
[2020-12-18] MEDS: Potassium Chloride 10 MEQ TAB PO SCH ×2 (10:08→17:57)
[2020-12-18] MEDS: Carbidopa/Levodopa 10-100 mg Tablet PO SCH ×3 (10:10→22:45)
[2020-12-18] MEDS: metFORMIN 500 MG TAB PO SCH ×2 (10:10→17:57)
[2020-12-18] MEDS: Azithromycin 250 MG TAB PO SCH (10:11)
[2020-12-18] MEDS: Amlodipine 5 MG TAB PO SCH (10:11)
[2020-12-18] MEDS: Mometasone/Formoterol 200/5 60 PUFF INH SCH ×2 (10:12→22:54)
[2020-12-18] MEDS: HumaLOG 300 UNITS/3 ML VIAL SC PRN (14:02)
[2020-12-18] MEDS: Atorvastatin Calcium 10 MG TAB PO SCH (22:45)
[2020-12-18] MEDS: Ezetimibe 10 MG TAB PO SCH (22:45)
[2020-12-18] MEDS: DULoxetine 30 MG CAP PO SCH (22:46)
[2020-12-18] MEDS: Aspirin Chewable 81 MG TAB PO SCH (22:46)
[2020-12-19 05:32] VITALS: BP 163/77; TEMP 97.8
[2020-12-19] MEDS: Mometasone/Formoterol 200/5 60 PUFF INH SCH (09:00)
[2020-12-19] MEDS: Carbidopa/Levodopa 10-100 mg Tablet PO SCH (09:00)
[2020-12-19] MEDS: metFORMIN 500 MG TAB PO SCH (09:00)
[2020-12-19] MEDS: Potassium Chloride 10 MEQ TAB PO SCH (09:00)
[2020-12-19] MEDS: Amlodipine 5 MG TAB PO SCH (09:00)
[2020-12-19] MEDS: Azithromycin 250 MG TAB PO SCH (09:00)
[2020-12-19] MEDS: HumaLOG 300 UNITS/3 ML VIAL SC PRN (12:43)
== END 2020-12-19 16:15 | disposition home or self-care (01) | DRG 948 ==
LOC: EDBD → BURMED 16:45
PROVIDERS: ADMIT Family Medicine; ATTEND Family Medicine
DX: R53.81 Other malaise (principal); B37.0 Candidal stomatitis; R13.10 Dysphagia, unspecified; S16.1XXA Strain of muscle, fascia and tendon at neck level, initial encounter; X58.XXXA Exposure to other specified factors, initial encounter; S10.93XA Contusion of unspecified part of neck, initial encounter
CPT/HCPCS: 36416; 94664; J1815

== ENCOUNTER 2021-02-04 19:33 | Emergency (ER) | payer MEDICARE, BC ==
[2021-02-04] MEDS ORDERED: predniSONE 20 MG TAB ONE (20:37)
== END 2021-02-04 20:40 | disposition home or self-care (01) ==
LOC: BURERS 19:33 → EDBD 19:33 → BURERS 20:40
DX: R05 Cough (principal); E11.9 Type 2 diabetes mellitus without complications; I48.91 Unspecified atrial fibrillation; J44.9 Chronic obstructive pulmonary disease, unspecified; K21.9 Gastro-esophageal reflux disease without esophagitis; E78.5 Hyperlipidemia, unspecified; E78.00 Pure hypercholesterolemia, unspecified; I25.10 Atherosclerotic heart disease of native coronary artery without angina pectoris; I10 Essential (primary) hypertension; G20 Parkinson's disease; Z87.891 Personal history of nicotine dependence; Z79.899 Other long term (current) drug therapy; Z79.82 Long term (current) use of aspirin; Z79.84 Long term (current) use of oral hypoglycemic drugs
CPT/HCPCS: 71046; J7512

== ENCOUNTER 2021-08-08 22:32 | Emergency (ER) | payer MEDICARE, BC ==
[2021-08-08] MEDS ORDERED: traMADol HCl 50 MG TAB ONE (23:23)
== END 2021-08-08 23:30 | disposition home or self-care (01) ==
LOC: BURERS 22:32
DX: S63.501A Unspecified sprain of right wrist, initial encounter (principal); X58.XXXA Exposure to other specified factors, initial encounter

== ENCOUNTER 2022-01-26 19:51 | Emergency (ER) | payer MEDICARE, BC | END 2022-01-26 20:37 | disposition home or self-care (01) | LOC: BURERS 19:51 | DX: S51.811A Laceration without foreign body of right forearm, initial encounter (principal); S61.411A Laceration without foreign body of right hand, initial encounter; S61.216A Laceration without foreign body of right little finger without damage to nail, initial encounter; E11.9 Type 2 diabetes mellitus without complications; J44.9 Chronic obstructive pulmonary disease, unspecified; I48.91 Unspecified atrial fibrillation; Z79.51 Long term (current) use of inhaled steroids; Z79.82 Long term (current) use of aspirin; Z79.84 Long term (current) use of oral hypoglycemic drugs; Z79.899 Other long term (current) drug therapy; Z86.73 Personal history of transient ischemic attack (TIA), and cerebral infarction without residual deficits; W18.30XA Fall on same level, unspecified, initial encounter | CPT/HCPCS: 99283 ==

== ENCOUNTER 2022-02-06 15:56 | Emergency (ER) | payer MEDICARE, BC ==
[2022-02-06 16:27] LABS: #Basophils 0.1 thou/uL (0.0-0.2); #Eosinphils 0.2 thou/uL (0.0-0.7); #Lymphocytes 1.5 thou/uL (1.20-3.40); #Monocytes 0.5 thou/uL (0.11-0.59); %Eosinophils 3.5 % (0.0-10.0); %Lymphocytes 23.4 % (21.0-51.0); %Monocytes 8.1 % (0.0-10.0); %Neutrophils 64.1 % (42.0-75.0); Hemoglobin 14.2 g/dL (14.0-18.0); Mean Corpuscular HGB CONC 30.9 g/dL (32.0-36.0); Mean Corpuscular Hemoglobin 29.9 pg (27.0-31.0); Mean Corpuscular Volume 96.8 fL (78.0-98.0); Mean Platelet Volume 7.9 fL (7.4-10.4); Platelet Count 145 thou/uL (130-400); RBC Distribution Width 13.5 % (11.5-14.5); Red Blood Cell (RBC) Count 4.74 mill/uL (4.70-6.10); White Blood Cell (WBC) Count 6.2 thou/uL (4.8-10.8)
[2022-02-06] MEDS ORDERED: Sodium Chloride 0.9% 100 ML ONE (16:38)
[2022-02-06] MEDS ORDERED: cefTRIAXone\\ROCEPHIN 1 GM VIAL ONE (16:38)
[2022-02-06] MEDS ORDERED: Acetaminophen 500 MG TAB ONE (16:41)
[2022-02-06 16:44] LABS: ALT (SGPT) 11 U/L (8-55); AST (SGOT) 11 U/L (5-34); Albumin 3.7 g/dL (3.4-4.8); Alkaline Phosphatase 68 U/L (40-110); Anion Gap 14 mmol/L (10-20); BUN (Urea Nitrogen) 9 mg/dL (8.4-25.7); Bilirubin, Total 0.5 mg/dL (0.2-1.2); Calc. Creatinine Clearance 0 mL/min (70-130); Calcium 8.8 mg/dL (7.8-10.44); Carbon Dioxide 28 mmol/L (23-31); Chloride 101 mmol/L (98-107); Globulin 2.7 g/dL (2.4-3.5); Glucose 150 mg/dL (83-110); Potassium 4.2 mmol/L (3.5-5.1); Protein, Total 6.4 g/dL (5.8-8.1); Sodium 139 mmol/L (136-145)
== END 2022-02-06 17:36 | disposition home or self-care (01) ==
LOC: BURERS 15:56
DX: S90.822A Blister (nonthermal), left foot, initial encounter (principal); S90.425A Blister (nonthermal), left lesser toe(s), initial encounter; J44.9 Chronic obstructive pulmonary disease, unspecified; I48.91 Unspecified atrial fibrillation; E11.9 Type 2 diabetes mellitus without complications; G20 Parkinson's disease; X58.XXXA Exposure to other specified factors, initial encounter; Z86.73 Personal history of transient ischemic attack (TIA), and cerebral infarction without residual deficits; Z79.82 Long term (current) use of aspirin; Z79.84 Long term (current) use of oral hypoglycemic drugs; Z79.899 Other long term (current) drug therapy
CPT/HCPCS: 36415; 80053; 83605; 85025; 87040; 96365; J0696; J3490

== ENCOUNTER 2022-03-31 14:12 | Outpatient (CLI) | payer MEDICARE, BC | END 2022-03-31 14:13 | disposition home or self-care (01) | LOC: BURRAD 14:12 | PROVIDERS: ATTEND Nurse Practitioner Family | DX: T81.89XD Other complications of procedures, not elsewhere classified, subsequent encounter (principal); S90.822A Blister (nonthermal), left foot, initial encounter; L08.89 Other specified local infections of the skin and subcutaneous tissue; B96.89 Other specified bacterial agents as the cause of diseases classified elsewhere; M89.372 Hypertrophy of bone, left ankle and foot ==

== ENCOUNTER 2022-04-01 17:05 | Outpatient (CLI) | payer MEDICARE, BC | END 2022-04-01 17:06 | disposition home or self-care (01) | LOC: BURRAD 17:05 | PROVIDERS: ATTEND Family Medicine | DX: M25.511 Pain in right shoulder (principal) ==

== ENCOUNTER 2022-05-16 12:47 | Emergency (ER) | payer MEDICARE, BC ==
[2022-05-16] MEDS ORDERED: Silver Nitrate Application 1 EACH ONE (13:32)
[2022-05-16] MEDS ORDERED: Bacitracin 1 PK ONE (13:35)
== END 2022-05-16 13:48 | disposition home or self-care (01) ==
LOC: BURERS 12:47
DX: S00.411A Abrasion of right ear, initial encounter (principal); J44.9 Chronic obstructive pulmonary disease, unspecified; I48.91 Unspecified atrial fibrillation; Z86.73 Personal history of transient ischemic attack (TIA), and cerebral infarction without residual deficits; X58.XXXA Exposure to other specified factors, initial encounter
CPT/HCPCS: 99282